=== PATIENT | male | born 1945 | race Caucasian/White ===

== ENCOUNTER 2017-03-10 06:59 | Emergency (ER) | payer MEDICARE, BC ==
[2017-03-10 07:20] VITALS: BP 158/72
[2017-03-10] MEDS ORDERED: Sodium Chloride 0.9% 1,000 ML IV ONE (08:08)
[2017-03-10] MEDS ORDERED: Ondansetron 4 MG/2 ML SDV IVPUSH ONE (08:08)
[2017-03-10 08:49] LABS: CHLORIDE,CL 106 mmol/L (98-115); SODIUM,NA 143 mmol/L (136-145)
[2017-03-10] MEDS ORDERED: Scopolamine 1.5 MG Transdermal Patch TRDERM PRN (09:25)
--- NOTE | 2017-03-10 19:50 | EDM.PDOC ---
ED HPI GENERAL MEDICAL PROBLEM - General Chief Complaint: General Stated Complaint: DIZZINESS,NAUSEA Time Seen by Provider: 03/10/17 07:15 Source of Information: Reports: Patient, Family () History Limitations: Reports: No limitations - History of Present Illness INITIAL COMMENTS - FREE TEXT/NARRATIVE: 71-year-old male presents to the emergency room this morning with complaints of feeling dizziness. He did feel nauseated this morning. This episode episode of dizziness occurred when he got up this morning to try to take the dog out to the bathroom. He felt very dizzy but denies any vertigo symptoms he felt unsteady in his feet and nauseated. He has had intermittent episodes of dizziness recently and has been told that he has fluid behind his right ear. He he feels his macular degeneration may have had also something to contribute to his dizziness. He does get injections in his eyes for this and recently had this this past in [place]. He denies any chest pain, shortness of breath , palpations, diaphoresis, weakness in his extremities, or change in his speech. He's had a prior 5 vessel CABG bypass in 2007 as well as a mitral annuloplasty Band. He denies significant cardiac complaints since his surgery. He is type II diabetic and his blood sugars were checked and were 104 this morning. He reports he drinks a lot of coffee and caffeinated beverages and very little water. Onset: today Onset Date: 03/10/17 Onset Time: 06:00 Duration: Minutes:, Waxing/waning Location: Reports: generalized Severity: moderate Improves with: Reports: Rest Worsens with: Reports: Movement Associated Symptoms: Reports: nausea/vomiting. Denies: confusion, chest pain, diaphoresis, fever/chills, headaches, shortness of breath, syncope, weakness - Related Data Allergies Allergy/AdvReac Type Severity Reaction Status Date / Time glipizide Allergy Syncope Verified 03/10/17 07:20 Home Meds: Home Meds Aspirin 325 mg PO DAILY 04/13/16 [History] Calcium Carb/Magnesium Hydrox [Rolaids Chewable Tablet] 1 each PO DAILY PRN 08/19 [History] Cholecalciferol (Vitamin D3) [Vitamin D3] 2,000 unit PO DAILY 04/13/16 [History] Dutasteride [Avodart] 0.5 mg PO DAILY 04/13/16 [History] Lisinopril [Prinivil] 10 mg PO DAILY 04/13/16 [History] Metoprolol Tartrate [Lopressor] 100 mg PO BID 04/13/16 [History] Multivits,Ca,Minerals/Iron/FA [Thera-M] 1 each PO DAILY 04/13/16 [History] Simvastatin [Zocor] 80 mg PO BEDTIME 04/13/16 [History] Tamsulosin [Flomax] 0.4 mg PO BEDTIME 04/13/16 [History] Vit C/Vit E Ac/Lut/Mineral 1 [Prosight with Lutein] 2 each PO DAILY 04/13/16 [ History] metFORMIN [Glucophage] 850 mg PO BIDMEALS 04/13/16 [History] Past Medical History HEENT History: Reports: Macular degeneration Cardiovascular History: Reports: Bypass, CAD, Heart valve replacement Genitourinary History: Reports: Prostate disorder Musculoskeletal History: Reports: Arthritis Endocrine/Metabolic History: Reports: Diabetes, type II Hematologic History: Reports: None Immunologic History: Reports: None - Past Surgical History Cardiovascular Surgical History: Reports: Coronary artery bypass, Valve replacement Social & Family History - Tobacco Use Smoking Status *Q: Former Smoker Years of Tobacco use: 40 Packs/Tins Daily: 2.5 Used Tobacco, but Quit: Yes Month Tobacco Last Used: March Second Hand Smoke Exposure: No - Caffeine Use Caffeine Use: Reports: Soda - Recreational Drug Use Recreational Drug Use: No ED ROS GENERAL - Review of Systems Review Of Systems: See Below Constitutional: Reports: no symptoms HEENT: Reports: Vision change (vision loss) Respiratory: Reports: No Symptoms Cardiovascular: Reports: No symptoms Endocrine: Reports: high glucose GI/Abdominal: Reports: No symptoms, Nausea : Reports: no symptoms Musculoskeletal: Reports: no symptoms Skin: Reports: no symptoms Neurological: Reports: Dizziness. Denies: Headache, Numbness, Syncope, Tingling , Trouble Speaking, Weakness, Change in Speech, Gait Disturbance ED EXAM, GENERAL - Physical Exam Exam: See Below Exam Limited By: No limitations General Appearance: alert, no apparent distress, thin Eye Exam: bilateral eye: EOMI, PERRL Ears: normal external exam, normal canal, hearing grossly normal, normal TMs Nose: normal inspection, no blood Throat/Mouth: Normal inspection, Normal oropharynx, Normal voice, No airway compromise Head: atraumatic, normocephalic Neck: normal inspection, supple. No: carotid bruit, lymphadenopathy (L), lymphadenopathy (R) Respiratory/Chest: no respiratory distress, lungs clear, normal breath sounds Cardiovascular: regular rate, rhythm, systolic murmur Peripheral Pulses: 2+: carotid (L), carotid (R), radial (L), radial (R), dorsalis pedis (L), dorsalis pedis (R) GI/Abdominal: normal bowel sounds, soft, non tender, no abnormal bruit Back Exam: normal inspection Extremities: normal inspection Neurological: alert, oriented, CN II-XII intact, normal reflexes, no motor/ sensory deficits Psychiatric: normal affect, normal mood Skin Exam: Warm, Dry, Intact, Normal color, No rash Lymphatic: no adenopathy EKG INTERPRETATION EKG Date: 03/10/17 Rhythm: NSR Rate (beats/min): 63 P-wave: enlarged QRS: normal ST-T: normal QT: normal Comparison: NA - no prior EKG EKG Interpretation Comments: Normal sinus rhythm possible left atrial enlargement Course - Vital Signs Last Recorded V/S: Last Vital Signs Temp 96.8 F 03/10/17 07:17 Pulse 67 03/10/17 07:17 Resp 18 03/10/17 07:17 BP 158/72 H 03/10/17 07:17 Pulse Ox 96 03/10/17 07:17 - Orders/Labs/Meds Orders: Active Orders 24 hr Category Date Time Status EKG Documentation Completion [RC] ASDIRECTED Care 03/10/17 08:10 Active Scopolamine [Transderm-Scop] Med 03/10/17 09:25 Active 1.5 mg TRDERM Q72H PRN Sodium Chloride 0.9% [Normal Saline] 1,000 ml Med 03/10/17 08:08 Active IV .BOLUS EKG 12 Lead [EK] Routine Ther 03/10/17 08:09 Ordered Medication Orders Sodium Chloride (Normal Saline) 1,000 mls @ 1,000 minidrops/hr IV .BOLUS ONE Stop: 03/12/17 20:07 Last Admin: 03/10/17 08:20 Dose: 1,000 minidrops/hr Scopolamine (Transderm-Scop) 1.5 mg TRDERM Q72H PRN PRN Reason: Dizziness Last Admin: 03/10/17 10:08 Dose: 1.5 mg Labs: Laboratory Tests 03/10/17 03/10/17 03/10/17 Range/Units 07:14 08:13 08:13 WBC 9.2 (5.0-10.0) 10^3/uL RBC 4.48 L (4.50-6.00) 10^6/uL Hgb 13.2 (13.0-17.0) g/dL Hct 39.2 L (40.0-52.0) % MCV 87.4 (82.0-92.0) fL MCH 29.4 (27.0-31.0) pg MCHC 33.7 (32.0-36.0) g/dL RDW 12.6 (11.5-14.5) % Plt Count 277 (150-300) 10^3/uL MPV 7.0 L (7.4-10.4) fL Neut % (Auto) 76.8 H (50.0-70.0) % Lymph % (Auto) 10.3 L (20.0-40.0) % Robertson % (Auto) 8.4 H (2.0-8.0) % Eos % (Auto) 3.7 H (1.0-3.0) % Baso % (Auto) 0.8 (0.0-1.0) % Neut # (Auto) 7.1 H (2.5-7.0) 10^3/uL Lymph # (Auto) 0.9 L (1.0-4.0) 10^3/uL Robertson # (Auto) 0.8 (0.1-0.8) 10^3/uL Eos # (Auto) 0.3 (0.1-0.3) 10^3/uL Baso # (Auto) 0.1 (0.0-0.1) 10^3/uL Sodium 143 (136-145) mmol/L Potassium 4.1 (3.3-5.3) mmol/L Chloride 106 (98-115) mmol/L Carbon Dioxide 30.1 (21.0-32.0) mmol/L BUN 13 (6-25) mg/dL Creatinine 0.78 (0.51-1.17) mg/dL Est Cr Clr Drug Dosing 75.86 mL/min Estimated GFR (MDRD) > 60 mL/min Glucose 146 H (70-110) mg/dL POC Glucose 181 H (74-106) mg/dl Calcium 8.7 (8.7-10.3) mg/dL Meds: Medications Generic Name Dose Route Start Last Admin Trade Name Freq PRN Reason Stop Dose Admin Sodium Chloride 1,000 mls @ 1,000 minidrops/hr 03/10/17 08:08 03/10/17 08:20 Normal Saline IV 03/12/17 20:07 1,000 minidrops/hr .BOLUS ONE Administration Scopolamine 1.5 mg 03/10/17 09:25 03/10/17 10:08 Transderm-Scop TRDERM 1.5 mg Q72H PRN Administration Dizziness Discontinued Medications Generic Name Dose Route Start Last Admin Trade Name Freq PRN Reason Stop Dose Admin Ondansetron HCl 4 mg 03/10/17 08:08 03/10/17 09:39 Zofran IVPUSH 03/10/17 08:09 4 mg ONETIME ONE Administration - Re-Assessments/Exams Free Text/Narrative Re-Assessment/Exam: 08:00 Patient was given 1 L of normal saline IV fluids, 4 mg of Zofran. Scopolamine patch was placed. Patient reports that his nausea resolved and feels his dizziness was much improved Departure - Departure Time of Disposition: 10:15 Disposition: Home, Self-Care 01 Condition: good Clinical Impression: Orthostatic dizziness, Dehydration, mild Instructions: Rehydration, Adult Referrals: Farnaz Dillard MD [Primary Care Provider] - Forms: ED Department Discharge Additional Instructions: 1. Rest. 2. Continue with hydration and avoid caffeinated beverages, coffee. 3. Scopolamine patch for 72 hours. 4. Arise slowly from a lying to seated position and from a seated to a standing position as this was likely a vasovagal response. 5. Followup with primary care as scheduled this week. 6. Any change in your symptoms, confusion, weakness, syncopal episode, and gait disturbance return to the emergency room for reevaluation. - Problem List Review Problem List Initiated/Reviewed/Updated: Yes - My Orders Last 24 Hours: My Active Orders 03/10/17 08:08 Sodium Chloride 0.9% [Normal Saline] 1,000 ml IV .BOLUS 03/10/17 08:09 EKG 12 Lead [EK] Routine 03/10/17 08:10 EKG Documentation Completion [RC] ASDIRECTED 03/10/17 09:25 Scopolamine [Transderm-Scop] 1.5 mg TRDERM Q72H PRN - Assessment/Plan Last 24 Hours: My Active Orders 03/10/17 08:08 Sodium Chloride 0.9% [Normal Saline] 1,000 ml IV .BOLUS 03/10/17 08:09 EKG 12 Lead [EK] Routine 03/10/17 08:10 EKG Documentation Completion [RC] ASDIRECTED 03/10/17 09:25 Scopolamine [Transderm-Scop] 1.5 mg TRDERM Q72H PRN Assessment:: Orthostatic dizziness probable vasovagal Mild dehydration Plan: 1. Rest 2. continue with oral hydration. Cut back her hold on caffeinated beverages 3. discussed with the patient and about getting up slowly from a seated to standing position or from a lying down to a seating position to do basal vagal response. 4. Followup with her primary care as scheduled on .
== END 2017-03-10 10:15 | disposition home or self-care (01) ==
LOC: KA.ED 06:59
DX: E86.0 Dehydration (principal); I25.10 Atherosclerotic heart disease of native coronary artery without angina pectoris; E11.9 Type 2 diabetes mellitus without complications; Z87.891 Personal history of nicotine dependence
CPT/HCPCS: 36415; 80048; 82962; 85025; 93005; 96361; 96374; 99284; A9270; J2405; J7030